=== PATIENT | female | born 1955 | race Caucasian/White ===

== ENCOUNTER 2016-08-21 20:14 | Emergency (ER) | payer SELFPAY ==
[~2016-08-21] VITALS: Ht 165.1 cm; Wt 74.0 kg
[2016-08-21 20:51] VITALS: BP 109/68
== END 2016-08-21 20:55 | disposition left against medical advice (07) ==
LOC: EME 20:14
DX: R55 Syncope and collapse (principal); Z53.21 Procedure and treatment not carried out due to patient leaving prior to being seen by health care provider
CPT/HCPCS: 93005